=== PATIENT | female | born 1935 | race Caucasian/White ===

== ENCOUNTER 2018-07-19 15:06 | Outpatient (REF) | payer MEDICARE, BC, SELFPAY | END 2018-07-19 15:26 | LOC: NCHCN 15:06 | PROVIDERS: PCP Internal Medicine; Visit Provider Internal Medicine | DX: N39.0 Urinary tract infection, site not specified (principal) | CPT/HCPCS: 87077; 87086; 87186 ==

== ENCOUNTER 2018-11-06 18:48 | Outpatient (REF) | payer MEDICARE, BC, SELFPAY ==
[2018-11-06 20:03] LABS: ALT 23 U/L (12-78); Anion Gap 7.5 mmol/L (3-11); BUN 20 mg/dL (7-18); CO2 28.5 mmol/L (21.0-32.0); CREATININE 0.95 mg/dL (0.55-1.02); Chloride 103 mmol/L (98-107); Estimated GFR 56.32 (mL/min/1.73m2); Glucose 90 mg/dL (70-100); LDL CHOLESTEROL 96 mg/dL (<100); Potassium 4.1 mmol/L (3.5-5.1); Sodium 139 mmol/L (136-145); TSH 1.74 uIU/mL (0.358-3.74); Vitamin B12 283 pg/mL (193-986)
== END 2018-11-06 19:08 ==
LOC: NCHCN 18:48
PROVIDERS: PCP Internal Medicine; Visit Provider Internal Medicine
DX: I10 Essential (primary) hypertension (principal); E78.5 Hyperlipidemia, unspecified; G60.9 Hereditary and idiopathic neuropathy, unspecified
CPT/HCPCS: 80048; 83721; 82607; 84443; 84460

== ENCOUNTER 2019-02-23 17:02 | Outpatient (REF) | payer MEDICARE, BC, SELFPAY ==
[2019-02-23 19:43] LABS: Bilirubin Negative (Negative); Blood Negative (Negative); Clarity Clear (Clear); Glucose Negative (Negative); Ketones Negative (Negative); Leukocyte Esterase Trace (Negative); Nitrite Negative (Negative); Specific Gravity 1.015 (1.005-1.025); Urobilinogen 0.2 EU/dL (Up TO 0.2)
[2019-02-23 20:04] LABS: Epithelial Cells Rare HPF (Negative); Other Cells Negative (Negative); RBC Negative (0-2)
[2019-02-23 20:05] LABS: Bacteria Rare HPF (Negative); C & S Indicated? C&S Done As Ordered; Casts Negative LPF (Negative); Crystals Negative HPF (Negative); Mucus Negative (Negative)
== END 2019-02-23 17:22 ==
LOC: NCHCN 17:02
PROVIDERS: PCP Internal Medicine; Visit Provider Internal Medicine
DX: N39.0 Urinary tract infection, site not specified (principal); J44.9 Chronic obstructive pulmonary disease, unspecified
CPT/HCPCS: 81003; 81015; 87086

== ENCOUNTER 2019-05-23 19:17 | Outpatient (REF) | payer MEDICARE, BC, SELFPAY | END 2019-05-23 19:37 | LOC: NCHCN 19:17 | PROVIDERS: PCP Internal Medicine; Visit Provider Physician Assistant | DX: N39.0 Urinary tract infection, site not specified (principal) | CPT/HCPCS: 87086 ==

== ENCOUNTER 2020-11-12 14:39 | Outpatient (REF) | payer MEDICARE, BC, SELFPAY ==
[2020-11-12 20:51] LABS: Anion Gap 7.4 mmol/L (3-11); BUN 17 mg/dL (7-18); CO2 27.6 mmol/L (21.0-32.0); CREATININE 0.7 mg/dL (0.55-1.02); Calcium 9.5 mg/dL (8.5-10.1); Chloride 107 mmol/L (98-107); Glucose 185 mg/dL (74-106); Potassium 3.8 mmol/L (3.5-5.1); Sodium 142 mmol/L (136-145); TSH 1.14 uIU/mL (0.36-3.74)
== END 2020-11-12 14:40 | disposition home or self-care (01) ==
LOC: NCHCN 14:39
PROVIDERS: PCP Internal Medicine; Visit Provider Internal Medicine
DX: I10 Essential (primary) hypertension (principal)
CPT/HCPCS: 80048; 84443

== ENCOUNTER 2021-11-09 14:50 | Outpatient (REF) | payer MEDICARE, BC, SELFPAY ==
[2021-11-09 19:19] LABS: Albumin 3.5 g/dL (3.4-5.0); BUN 21 mg/dL (7-18); CREATININE 0.7 mg/dL (0.55-1.02); Chloride 107 mmol/L (98-107); Glucose 90 mg/dL (74-106); PHOSPHORUS 3.3 mg/dL (2.6-4.7); Potassium 4.1 mmol/L (3.5-5.1); Sodium 141 mmol/L (136-145)
== END 2021-11-09 14:51 | disposition home or self-care (01) ==
LOC: NCHCN 14:50
PROVIDERS: PCP Internal Medicine; Visit Provider Internal Medicine
DX: I10 Essential (primary) hypertension (principal)
CPT/HCPCS: 80069

== ENCOUNTER 2022-09-23 14:55 | Outpatient (REF) | payer MEDICARE, BC, SELFPAY ==
[2022-09-23 19:01] LABS: Abs Immature Grans 0.02 10^3/uL (0.0-0.06); Absolute Basophil Count 0.06 10^3/uL (0.0-0.2); Absolute Monocyte Count 0.57 10^3/uL (0.1-0.8); Basophils % 0.8; Eosinophils % 1.3; HCT 42.3 % (36.0-46.0); HGB 13.9 g/dL (11.2-15.7); Immature Grans % 0.3; Lymphocytes % 21.5; MCH 30.9 pg (27.0-33.0); MCHC 32.9 % (32.0-36.0); MCV 94 fL (80-95); Monocytes % 7.7; Neutrophils % 68.4; Platelet Count 303 10^3/uL (130-400); RDW 12.3 % (11.7-14.6); RDW-SD 42.7 fL; WBC 7.45 10^3/uL (4.4-10.8)
[2022-09-23 19:31] LABS: Anion Gap 7.1 mmol/L (3-11); BUN 21 mg/dL (7-18); C-Reactive Protein 0.15 mg/dL (0.0-0.3); CO2 27.9 mmol/L (21.0-32.0); CREATININE 0.8 mg/dL (0.55-1.02); Calcium 10.2 mg/dL (8.5-10.1); Chloride 105 mmol/L (98-107); Estimated GFR 72.16 (mL/min/1.73m2); Glucose 104 mg/dL (74-106); Potassium 4.1 mmol/L (3.5-5.1); Sodium 140 mmol/L (136-145); Uric Acid 2.4 mg/dL (2.6-6.0)
[2022-09-23 19:46] LABS: Vitamin D 25 Total 29.4 ng/mL (30-100)
[2022-09-23 19:48] LABS: Calculated LDL 84 mg/dL (<100); Cholesterol 172 mg/dL (<200); HDL Cholesterol 61 mg/dL (40-60); Triglyceride 135 mg/dL (<150)
== END 2022-09-23 14:56 | disposition home or self-care (01) ==
LOC: NCHCN 14:55
PROVIDERS: PCP Internal Medicine; Visit Provider Internal Medicine
DX: E78.5 Hyperlipidemia, unspecified (principal); I10 Essential (primary) hypertension; M11.80 Other specified crystal arthropathies, unspecified site; E55.9 Vitamin D deficiency, unspecified
CPT/HCPCS: 80048; 80061; 82306; 84550; 85025; 86140

== ENCOUNTER 2022-11-17 16:06 | Outpatient (REF) | payer MEDICARE, BC, SELFPAY ==
[2022-11-17 19:50] LABS: Calcium 9.8 mg/dL (8.5-10.1)
[2022-11-19 13:56] LABS: Albumin 60.3 % (55.8-66.1); Albumin g/dL 3.9 g/dL (3.6-5.2); Total Protein 6.4 g/dL (6.3-8.2)
[2022-11-26 09:05] LABS: Parathyroid Hormone,Intact 54 pg/mL (19-88)
== END 2022-11-17 16:07 | disposition home or self-care (01) ==
LOC: NCHCN 16:06
PROVIDERS: PCP Internal Medicine; Visit Provider Internal Medicine
DX: E83.52 Hypercalcemia (principal); Z00.00 Encounter for general adult medical examination without abnormal findings
CPT/HCPCS: 82310; 83970; 84165

== ENCOUNTER 2023-09-21 16:50 | Outpatient (REF) | payer MEDICARE, BC, SELFPAY ==
[2023-09-21 20:43] LABS: HCT 41.6 % (36.0-46.0); HGB 13.8 g/dL (11.2-15.7); MCH 31.5 pg (27.0-33.0); MCHC 33.2 % (32.0-36.0); MCV 95 fL (80-95); MPV 8.9 fL (8.0-11.0); Platelet Count 260 10^3/uL (130-400); RBC 4.38 10^6/uL (3.93-5.22); RDW 12.8 % (11.7-14.6); RDW-SD 45.1 fL; WBC 7.83 10^3/uL (4.4-10.8)
[2023-09-21 21:03] LABS: BUN 19 mg/dL (7-18); CREATININE 0.6 mg/dL (0.55-1.02); Calcium 9.4 mg/dL (8.5-10.1); Chloride 107 mmol/L (98-107); Creatine Kinase 116 U/L (26-192); Estimated GFR 87.36 (mL/min/1.73m2); Glucose 93 mg/dL (74-106); Magnesium 2.2 mg/dL (1.8-2.4); Potassium 3.9 mmol/L (3.5-5.1); Sodium 142 mmol/L (136-145); TSH 1.25 uIU/Ml (0.36-3.74)
[2023-09-21 21:04] LABS: C-Reactive Protein < 0.50 mg/dL (<or=0.5)
[2023-09-21 21:44] LABS: Vitamin D 25 Total 18.1 ng/mL (30-100)
== END 2023-09-21 16:51 | disposition home or self-care (01) ==
LOC: NCHCN 16:50
PROVIDERS: PCP Internal Medicine; Visit Provider Internal Medicine
DX: I10 Essential (primary) hypertension (principal); E83.52 Hypercalcemia; M81.0 Age-related osteoporosis without current pathological fracture; M79.18 Myalgia, other site
CPT/HCPCS: 80048; 82306; 82550; 85027; 83735; 84443; 86140

== ENCOUNTER 2024-10-12 14:16 | Outpatient (REF) | payer MEDICARE, BC, SELFPAY ==
[2024-10-12 18:54] LABS: HCT 40.6 % (36.0-46.0); HGB 13.2 g/dL (11.2-15.7); MCH 30.9 pg (27.0-33.0); MCHC 32.5 % (32.0-36.0); MCV 95 fL (80-95); MPV 9.3 fL (8.0-11.0); Platelet Count 238 10^3/uL (130-400); RBC 4.27 10^6/uL (3.93-5.22); RDW 13.1 % (11.7-14.6); RDW-SD 45.6 fL
[2024-10-12 19:08] LABS: Anion Gap 6.6 mmol/L (3-11); BUN 20 mg/dL (7-18); CO2 29.4 mmol/L (21.0-32.0); CREATININE 1.1 mg/dL (0.55-1.02); Calcium 9.7 mg/dL (8.5-10.1); Chloride 109 mmol/L (98-107); Estimated GFR 48.63 (mL/min/1.73m2); Glucose 141 mg/dL (74-106); Potassium 4.3 mmol/L (3.5-5.1); Sodium 145 mmol/L (136-145)
== END 2024-10-12 14:17 | disposition home or self-care (01) ==
LOC: NCHCN 14:16
PROVIDERS: PCP Internal Medicine; Visit Provider Internal Medicine
DX: I10 Essential (primary) hypertension (principal); K62.5 Hemorrhage of anus and rectum
CPT/HCPCS: 80048; 85027

== ENCOUNTER 2025-03-08 14:25 | Outpatient (REF) | payer MEDICARE, BC, SELFPAY ==
[2025-03-08 19:18] LABS: Abs Immature Grans 0.02 10^3/uL (0.0-0.06); HCT 40.6 % (36.0-46.0); HGB 12.9 g/dL (11.2-15.7); Immature Grans % 0.3 %; MCH 29.2 pg (27.0-33.0); MCHC 31.8 % (32.0-36.0); MCV 92 fL (80-95); MPV 9.4 fL (8.0-11.0); Platelet Count 244 10^3/uL (130-400); RBC 4.42 10^6/uL (3.93-5.22); RDW 12.4 % (11.7-14.6); RDW-SD 41.2 fL; WBC 6.27 10^3/uL (4.4-10.8)
[2025-03-08 19:59] LABS: ALT 20 U/L (14-59); AST 26 U/L (15-37); Albumin 3.1 g/dL (3.4-5.0); Alkaline Phosphatase 90 U/L (46-116); Anion Gap 5.8 mmol/L (3-11); BUN 16 mg/dL (7-18); Bilirubin, Total 0.6 mg/dL (0.2-1.0); CO2 30.2 mmol/L (21.0-32.0); Calcium 10.2 mg/dL (8.5-10.1); Chloride 107 mmol/L (98-107); Estimated GFR 70.83 (mL/min/1.73m2); Glucose 89 mg/dL (74-106); Potassium 4.3 mmol/L (3.5-5.1); Sodium 143 mmol/L (136-145); Total Protein 6.8 g/dL (6.4-8.2); Vitamin D 25 Total 45 ng/mL (30-100)
== END 2025-03-08 14:26 | disposition home or self-care (01) ==
LOC: NCHCN 14:25
PROVIDERS: PCP Internal Medicine; Visit Provider Physician Assistant
DX: N18.31 Chronic kidney disease, stage 3a (principal); M81.0 Age-related osteoporosis without current pathological fracture
CPT/HCPCS: 80053; 82306; 83970; 85025